=== PATIENT | male | born 1945 | race African-American/Black ===

== ENCOUNTER 2019-11-11 11:47 | Inpatient (IN) ==
[2019-11-11 14:30] LABS: Basophils % 0.7 % (0.0-0.8); Eosinophils # 0.2 10*3/uL (0.0-0.87); Eosinophils % 4.1 % (0.00-10.9); Hematocrit 36.1 VOL% (42.0-52.0); Hemoglobin 11.3 GM/DL (14.0-18.0); Immature Granulocytes % 0.4 %; Immature Granulocytes Absolute 0.02 #; Lymphocytes # 2.2 10*3/uL (1.4-4.0); Lymphocytes % 39.7 % (21.2-54.2); Mean Corpuscular HGB Conc 31.3 GM/DL (32-36); Mean Corpuscular Volume 93.5 FL (87-102); Neutrophils % 44.1 % (38.7-73.9); Platelet Count 404 T/CUMM (130-400); Red Blood Count 3.86 MC/CUMM (3.8-5.5); White Blood Count 5.6 T/CUMM (4-12)
[2019-11-11 15:06] LABS: Alanine Aminotransferase 15 U/L (16-61); Albumin 3.4 G/DL (3.4-5.0); Alkaline Phosphatase 141 U/L (45-117); Aspartate Amino Transferase 12 U/L (0-37); Bilirubin,Total < 0.39 MG/DL (0.2-1.0); Blood Urea Nitrogen 100 MG/DL (7-18); Calcium 8.4 MG/DL (8.5-10.1); Estimated Glom Filtration Rate 6 ML/MIN; Glucose 96 MG/DL (74-106); Osmolality,Calculated 303.8 MOS/KG (273-304); Total Protein 7.9 G/DL (6.4-8.3)
[2019-11-11] MEDS ORDERED: DEXTROSE 10% 250 ML BAG IV PRN (15:19)
[2019-11-11] MEDS ORDERED: GLUCAGON 1 MG VIAL IM PRN (15:19)
[2019-11-11 15:56] LABS: Hepatitis B Core IgM Quant < 0.05 Index; Hepatitis B Surface Ag Quant < 0.10 Index; Hepatitis B Surface Ag Result Negative (Negative); Hepatitis C Virus Ab Result Negative (Negative)
[2019-11-11 19:50] LABS: Apearance,Urine CLEAR (Clear); Bilirubin,Urine Negative (Negative); Blood, Urine Small mg/dL (Negative); Glucose,Urine (UA) 50 mg/dL (Negative); Ketones,Urine Negative (Negative); Mucus,Urine Occasional /LPF (Occasional); Nitrite,Urine Negative (Negative); Protein,Urine 100 MG/DL; RBC,Urine 1 /HPF (0-4); Urine Color Straw (Yellow); Urine Specific Gravity 1.011 (1.001-1.035); Urine Urobilinogen < 2.0 EU/DL (0.2-1.0); WBC,Urine 1 /HPF (0-6)
[2019-11-11] MEDS: hydrALAZINE 20 MG/1 ML VIAL IV PRN (20:33)
[2019-11-12] MEDS: hydrALAZINE 20 MG/1 ML VIAL IV PRN ×2 (04:14→15:45)
[2019-11-12] MEDS ORDERED: ceFAZolin 1,000 MG in SYRINGE 1 EACH IV ONE (06:30)
[2019-11-12] MEDS ORDERED: LIDOCAINE 1%/EPI INJ 20 ML VIAL ONE (07:17)
[2019-11-12] MEDS ORDERED: BUPIVACAINE MPF 0.25% 30 ML VIAL ONE (07:17)
[2019-11-12] MEDS ORDERED: HEPARIN 5,000 UNIT/1 ML VIAL ONE (07:17)
[2019-11-12] MEDS ORDERED: propofoL 200 MG/20 ML VIAL IV ONE (08:33)
[2019-11-12] MEDS ORDERED: LIDOCAINE 2% 5 ML VIAL ONE (08:33)
[2019-11-12] MEDS ORDERED: KETAMINE 500 MG/10 ML VIAL ONE (08:33)
[2019-11-12] MEDS ORDERED: MIDAZOLAM 2 MG/2 ML VIAL ONE (08:34)
[2019-11-12] MEDS ORDERED: SODIUM CHLORIDE 0.9% 250 ML IV ONE (08:34)
[2019-11-12 09:06] LABS: Basophils % 0.8 % (0.0-0.8); Eosinophils # 0.2 10*3/uL (0.0-0.87); Eosinophils % 2.9 % (0.00-10.9); Hematocrit 35.8 VOL% (42.0-52.0); Hemoglobin 11.2 GM/DL (14.0-18.0); Immature Granulocytes % 0.4 %; Immature Granulocytes Absolute 0.02 #; Lymphocytes # 1.5 10*3/uL (1.4-4.0); Lymphocytes % 28.6 % (21.2-54.2); Mean Corpuscular HGB Conc 31.3 GM/DL (32-36); Mean Platelet Volume 8.8 FL (9.6-12.0); Monocytes % 10.7 % (1.7-12.7); Neutrophils % 56.6 % (38.7-73.9); Platelet Count 392 T/CUMM (130-400); Red Blood Count 3.89 MC/CUMM (3.8-5.5); Red Cell Distribution Width 13.7 % (9.3-17.3); White Blood Count 5.3 T/CUMM (4-12)
[2019-11-12 09:26] LABS: Calcium 8.3 MG/DL (8.5-10.1); Osmolality,Calculated 305.7 MOS/KG (273-304)
[2019-11-12 09:36] LABS: Thyroid Stimulating Hormone 2.51 uIU/ml (0.358-3.74)
[2019-11-12] MEDS: ONDANSETRON 4 MG/2 ML VIAL IV PRN (13:46)
[2019-11-12] MEDS: allopurinoL 100 MG TABLET PO SCH (13:49)
[2019-11-12] MEDS: ATORVASTATIN 10 MG TABLET PO SCH (13:49)
[2019-11-12] MEDS: PARoxetine 10 MG TABLET PO SCH (13:49)
[2019-11-12] MEDS: ASPIRIN CHEW 81 MG TABLET PO SCH (13:50)
[2019-11-12] MEDS: OLOPATADINE BOTH EYES SCH (13:50)
[2019-11-12] MEDS: MULTIVITAMIN (CENTRUM) TABLET PO SCH (13:50)
[2019-11-12] MEDS: METOPROLOL SUCCINATE XL 100 MG TABLET PO SCH (14:04)
[2019-11-12] MEDS ORDERED: MAGNESIUM SULF RIDER 4 GM in PREMIX 1 EACH IV PRN (14:35)
[2019-11-12] MEDS ORDERED: MAGNESIUM SULF RIDER 2 GM in PREMIX 1 EACH IV PRN (14:35)
[2019-11-13] MEDS: PARoxetine 10 MG TABLET PO SCH (08:06)
[2019-11-13] MEDS: ATORVASTATIN 10 MG TABLET PO SCH (08:06)
[2019-11-13] MEDS: ASPIRIN CHEW 81 MG TABLET PO SCH (08:06)
[2019-11-13] MEDS: METOPROLOL SUCCINATE XL 100 MG TABLET PO SCH (08:06)
[2019-11-13] MEDS: allopurinoL 100 MG TABLET PO SCH (08:07)
[2019-11-13] MEDS: MULTIVITAMIN (CENTRUM) TABLET PO SCH (08:07)
[2019-11-13] MEDS: OLOPATADINE BOTH EYES SCH (08:18)
[2019-11-13 08:50] LABS: Basophils # 0.1 10*3/uL (0.0-0.2); Basophils % 0.8 % (0.0-0.8); Eosinophils # 0.1 10*3/uL (0.0-0.87); Hematocrit 36.4 VOL% (42.0-52.0); Hemoglobin 11.7 GM/DL (14.0-18.0); Immature Granulocytes % 0.3 %; Immature Granulocytes Absolute 0.02 #; Lymphocytes # 1.8 10*3/uL (1.4-4.0); Lymphocytes % 30.5 % (21.2-54.2); Mean Corpuscular HGB Conc 32.1 GM/DL (32-36); Mean Platelet Volume 9.4 FL (9.6-12.0); Monocytes % 12.9 % (1.7-12.7); Neutrophils % 53.5 % (38.7-73.9); Platelet Count 321 T/CUMM (130-400); Red Cell Distribution Width 13.7 % (9.3-17.3)
[2019-11-13 09:03] LABS: Calcium 8.5 MG/DL (8.5-10.1)
[2019-11-13] MEDS: DILTIAZEM CD 240 MG CAPSULE PO SCH (10:27)
[2019-11-13] MEDS: hydrALAZINE 20 MG/1 ML VIAL IV PRN (10:28)
[2019-11-13] MEDS: ONDANSETRON 4 MG/2 ML VIAL IV PRN (14:58)
[2019-11-13] MEDS ORDERED: HEPARIN 10,000 UNIT/10 ML VIAL IV SCH (15:45)
[2019-11-14 05:05] LABS: Basophils # 0.1 10*3/uL (0.0-0.2); Basophils % 0.7 % (0.0-0.8); Eosinophils # 0.2 10*3/uL (0.0-0.87); Eosinophils % 2.5 % (0.00-10.9); Hematocrit 35.9 VOL% (42.0-52.0); Hemoglobin 11.6 GM/DL (14.0-18.0); Immature Granulocytes % 0.4 %; Immature Granulocytes Absolute 0.03 #; Lymphocytes # 1.5 10*3/uL (1.4-4.0); Lymphocytes % 20.7 % (21.2-54.2); Mean Corpuscular HGB Conc 32.3 GM/DL (32-36); Mean Corpuscular Volume 90.7 FL (87-102); Mean Platelet Volume 9.1 FL (9.6-12.0); Monocytes % 14.9 % (1.7-12.7); Neutrophils % 60.8 % (38.7-73.9); Platelet Count 239 T/CUMM (130-400); Red Blood Count 3.96 MC/CUMM (3.8-5.5); Red Cell Distribution Width 13.3 % (9.3-17.3); White Blood Count 7.2 T/CUMM (4-12)
[2019-11-14 05:31] LABS: Calcium 8.4 MG/DL (8.5-10.1); Osmolality,Calculated 279.1 MOS/KG (273-304)
[2019-11-14] MEDS: PARoxetine 10 MG TABLET PO SCH (08:34)
[2019-11-14] MEDS: METOPROLOL SUCCINATE XL 100 MG TABLET PO SCH (08:34)
[2019-11-14] MEDS: DILTIAZEM CD 240 MG CAPSULE PO SCH (08:34)
[2019-11-14] MEDS: MULTIVITAMIN (CENTRUM) TABLET PO SCH (08:34)
[2019-11-14] MEDS: allopurinoL 100 MG TABLET PO SCH (08:34)
[2019-11-14] MEDS: ATORVASTATIN 10 MG TABLET PO SCH (08:35)
[2019-11-14] MEDS: ASPIRIN CHEW 81 MG TABLET PO SCH (08:35)
[2019-11-14] MEDS: OLOPATADINE BOTH EYES SCH (08:40)
[2019-11-15 06:26] LABS: Basophils # 0.1 10*3/uL (0.0-0.2); Basophils % 0.6 % (0.0-0.8); Eosinophils # 0.3 10*3/uL (0.0-0.87); Eosinophils % 3.4 % (0.00-10.9); Hematocrit 32.6 VOL% (42.0-52.0); Hemoglobin 10.6 GM/DL (14.0-18.0); Immature Granulocytes % 0.4 %; Immature Granulocytes Absolute 0.03 #; Lymphocytes # 1.6 10*3/uL (1.4-4.0); Lymphocytes % 21.2 % (21.2-54.2); Mean Corpuscular HGB Conc 32.5 GM/DL (32-36); Mean Corpuscular Volume 90.6 FL (87-102); Mean Platelet Volume 9.5 FL (9.6-12.0); Monocytes % 14.5 % (1.7-12.7); Neutrophils % 59.9 % (38.7-73.9); Platelet Count 234 T/CUMM (130-400); Red Cell Distribution Width 13.2 % (9.3-17.3); White Blood Count 7.7 T/CUMM (4-12)
[2019-11-15 06:52] LABS: Calcium 8.3 MG/DL (8.5-10.1)
[2019-11-15] MEDS: ATORVASTATIN 10 MG TABLET PO SCH (09:08)
[2019-11-15] MEDS: METOPROLOL SUCCINATE XL 100 MG TABLET PO SCH (09:08)
[2019-11-15] MEDS: allopurinoL 100 MG TABLET PO SCH (09:08)
[2019-11-15] MEDS: MULTIVITAMIN (CENTRUM) TABLET PO SCH (09:08)
[2019-11-15] MEDS: DILTIAZEM CD 240 MG CAPSULE PO SCH (09:08)
[2019-11-15] MEDS: PARoxetine 10 MG TABLET PO SCH (09:09)
[2019-11-15] MEDS: ASPIRIN CHEW 81 MG TABLET PO SCH (09:09)
[2019-11-15] MEDS: OLOPATADINE BOTH EYES SCH (09:10)
[2019-11-15 18:29] VITALS: BP 177/103
== END 2019-11-15 17:25 | disposition home or self-care (01) | DRG 673 ==
LOC: SUATTDRO 13:29 → N.3E 13:29
PROVIDERS: ADMIT Internal Medicine; ATTEND Internal Medicine